=== PATIENT | male | born 1970 | race Caucasian/White ===

== ENCOUNTER 2017-09-21 14:10 | Inpatient (IN) | payer OTHER ==
[~2017-09-21] VITALS: Ht 180.3 cm; Wt 93.5 kg
--- NOTE | ~2017-09-21 | EKG ---
[place] [address] 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[facility] : 1970 Requested By: Shay Genao Order Number: [id number] MD: Billy Barba Measurements Intervals [place] Rate: 106 P: 40 AR: 146 QRS: -34 QRSD: 114 T: 188 QT: 350 QTc: 465 Interpretive Statements Sinus tachycardia Atrial premature complex Borderline IVCD with LAD Nonspecific ST and T wave abnormality No previous ECG available for comparison Electronically Signed On 09-23-2017 8:34:19 CDT by Billy Barba [email or web address] <ELECTRONICALLY SIGNED> By: Billy Barba MD, [facility] 09/23/17 0834 D: 07/1417 141 Billy Barba MD, FACC /EPI
--- NOTE | ~2017-09-21 | H ---
[facility] [place] [address] HISTORY AND PHYSICAL Name: MARYANNE CLEVELAND Room #: 213-P [facility] IN M.R.#: [id number] Admission: 09/21/17 Attend Phys: Andre Brady MD, Discharge: 09/26/17 Date of : 72 Report #: [id number] THIS REPORT FOR: //name// CC: ELIAZAR Brady Physician staff DATE OF SERVICE: 09/21/2017 HISTORY OF PRESENT ILLNESS: The patient is a 47-year-old male who presented to my office for an echo Doppler. Was seen by primary care physician, PEGGY Mane with a 2-week history of markedly increased weight, shortness of breath, dyspnea, orthopnea and unable to lie flat. He does not have prior cardiac history. The echo Doppler in our office revealed an ejection fraction of 15-20% with a PA pressure of 60-70. Moderate MR, TR. The patient denies being sick in the last few months. He denies any significant chest pain or anginal complaints. No significant family history of premature coronary artery disease. He takes no medications. In the past, he has been moderate alcohol, tobacco and some illicit drug use, but nothing recently. He talks about a 20-25 pound weight gain over the last couple of weeks. He is accompanied by his significant other. History of binge drinking and cocaine, but he states nothing recently. PAST MEDICAL HISTORY: Essentially negative except for tonsillectomy. FAMILY HISTORY: Negative for premature coronary artery disease. MEDICATIONS: Ativan p.r.n. for anxiety. ALLERGIES: No known drug allergies. SOCIAL HISTORY: He is not . History of binge drinking and cocaine, but nothing real recently. He works 3 jobs. He has a significant other. REVIEW OF SYSTEMS: Negative except for stated above with a markedly increased weight gain, shortness of breath. LABORATORY DATA: Sodium 141, potassium 3.4, creatinine 1.4. Troponin 0.4. ProBNP 6050. H and H 14 and 44, platelets 318. Chest x-ray shows cardiomegaly and some mild cephalization. PHYSICAL EXAMINATION: GENERAL: He is mildly dyspneic at rest. VITAL SIGNS: Blood pressure in the office was 160s-170s/110. Currently, blood pressure is improved 140/100, pulse has been anywhere initially at 100 an hour [facility] [address] [place] [address] HISTORY AND PHYSICAL Name: MARYANNE CLEVELAND Room #: 213-P [facility] IN M.R.#: [id number] Admission: 09/21/17 Attend Phys: Andre Brady MD, Discharge: 09/26/17 Date of : 72 Report #: [id number] and 70s. HEENT: Eyes reveal xanthelasmas. Pharynx is clear. NECK: Shows preserved upstrokes without JVD. There is JVD noted about fdc up to the angle of the jaw with some jugular venous pulsations. LUNGS: Markedly diminished in the bases with few crackles. CARDIOVASCULAR: S1, S2 distant. There was a soft S3 gallop this afternoon on his admission. ABDOMEN: Slightly protuberant. Positive for hepatojugular reflux. EXTREMITIES: Reveal 3+ edema to the knee. Distal pulses diminished. NEUROLOGIC: Intact. MUSCULOSKELETAL: No gross joint deformity. SKIN: Warm and dry with some evidence of some early venous stasis. ASSESSMENT: 1. Acute systolic heart failure, ejection fraction 15-20%. 2. Severe apparent dilated, I suspect nonischemic cardiomyopathy (do need to rule out ischemic cause). 3. Hypertension, possibly uncontrolled. 4. History of drug and alcohol use, but currently none. 5. Pulmonary hypertension. RECOMMENDATIONS AND PLAN: Blood pressure control, heart rate, initiate afterload reducers, diuretics, blood pressure. Echo Doppler from the office report is here, significant pulmonary hypertension secondary to volume overload. PA pressure was 60-70 mmHg. Fluid and sodium restriction. We will initiate Aldactone, ARB, beta blockers, daily weights and eventually will need right and left heart catheterization. Thank you for asking me to assist in the care of this patient. <ELECTRONICALLY SIGNED> By: Andre Brady MD, FACC 09/27/17 0923 25 01 Andre Brady MD, FACC /nt
--- NOTE | ~2017-09-21 | CATHLAB ---
[facility] [address] [place] [address] INVASIVE PROCEDURE REPORT Name: MARYANNE CLEVELAND Room #: 213-P [facility] IN M.R.#: [id number] Admission: 09/21/17 Attend Phys: Andre Brady, Discharge: 09/26/17 Date of : 72 Date of Service: 09/26/17 1213 Report #: [id number] THIS REPORT FOR: //name// APPROVED REPORT Study performed: 09/23/2017 12:12:27 Patient Details Patient Status: In-Patient Room #: The patient is a 47 year-old male Event Personnel Andre Brady Helmet Hat Brim Cutter, Belinda Alexander RTR, DISTRICT DIRECTOR Monitor, Orlando Naylor RN, Amilcar Borden RN RN, Pascual Cleveland Scrbrown Procedures Performed Art Access - R femoral artery* , Carson Access - R femoral vein 42237 Initial Mod Sed Same Phys/QHP Gr5y 241482 Right and Left Heart Cath w/or w/o Coronarie [id number] RLHC Hemostasis w/ Mynx Hemostasis with Manual pressure 48192 Mod Sed Same Phys/QHP Ea 901225 Renal Bilateral Peripheral Angiography [id number] CVRENALBIL Indication Cardiomyopathy Procedure Narrative The Right Groin^ was infiltrated with 1% Lidocaine subcutaneous anesthesia. A Right Heart Catheterization was performed with a 7 Fr. Casselton-Brynn catheter and pressure were recorded. Cardiac outputs were obtained by the Thermal Dilution method. A PINNACLE 6FR Sheath #[id number] sheath was inserted into the RFA^. Coronary angiography was performed using coronary diagnostic catheters. The right coronary system was accessed and visualized with a JR4 catheter. The left coronary system was accessed and visualized with a JL4 catheter. The left ventricle was accessed and visualized with a Pigtail catheter. Left ventriculogram was performed in 30 degree projection. Pre-demployment femoral angiogram was performed . Closure device was deployed with a 6 Fr MYNXGRIP 6/7F #[id number]. Hemostasis was obtained with manual pressure following sheath removal without any complications. The patient tolerated the procedure well and there were no complications associated with the procedure. There was no hematoma. [facility] [address] [place] [address] INVASIVE PROCEDURE REPORT Name: CRISTOFERMARYANNE Room #: 213-P [facility] IN M.R.#: [id number] Admission: 09/21/17 Attend Phys: Andre Brady, Discharge: 09/26/17 Date of : 72 Date of Service: 09/26/17 1213 Report #: [id number] Intraoperative Conscious Sedation Sedation start time: 12:38 Case end Time: 13:16 Fentanyl 50 mcg Versed 1.5 mg Fluoro Time: 5.33 minutes Dose: DAP 6265.50 cGycm2 586 mGy Contrast Type and Amount: Visipaque 105 ml Hemodynamics The right atrial mean pressure is 26 mmHg. The right ventricular pressure is 67/17 mmHg. The pulmonary artery pressure is 83/46 mmHg with a mean of 60 mmHg. The mean pulmonary capillary wedge pressure is 34 mmHg. The aortic pressure is 172/119 mmHg with a mean of 138 mmHg. The left ventricular pressure is 183/26 mmHg with a mean of mmHg. The left ventricular end diastolic pressure is 51 mmHg. The cardiac output using thermo method is 3.55 L/min. The cardiac index using thermo method is 1.57 L/min/m2. Conclusion #1 successful right left heart catheterization see hemodynamics above. Marketed elevations in pulmonary artery pressure pulmonary wedge pressure. #2 mildly dilated left ventricle with severe global hypokinesis EF 15-20% range #3 normal coronary anatomy no occlusive disease left dominant system #4 selective bilateral renal artery angiogram reveals a 30% ostial right renal artery otherwise well-preserved Recommendations and plan:. Patient is currently admitted to the CCU. Have rebolus with 80 mg of Lasix and initiated a drip. Have significant diuresis left to go here. Will need aggressive fluid and sodium restriction hypertensive control and appropriate medications. <ELECTRONICALLY SIGNED> By: Andre Brady MD, FACC 09/26/17 121 12 12 Andre Brady MD, FACC /INF
[2017-09-21 14:14] VITALS: BP 197/142
[2017-09-21 14:46] LABS: ABSOLUTE NEUTROPHILS 7.2 thou/uL (1.4-8.2); BASOPHILS 1.1 % (0.0-2.0); EOSINOPHILS 1.5 % (0.0-3.0); HEMATOCRIT 44.3 % (42.0-52.0); HEMOGLOBIN 14.2 gm/dL (14.0-18.0); LYMPHOCYTES 20.6 % (24.0-44.0); MCH 25.5 pg (26.0-34.0); MCHC 32.1 g/dL (28.0-37.0); MCV 79.4 fL (80.0-100.0); MONOCYTES 10.1 % (1.0-8.0); PLATELET COUNT 318 thou/uL (150-400); POLYS 66.7 % (36.0-66.0); RBC 5.58 mil/uL (4.50-6.00); RDW 14.5 % (10.5-14.5); WBC 10.8 thou/uL (4.0-11.0)
[2017-09-21 15:00] LABS: CALCIUM 8.6 mg/dL (8.5-10.1); CREATININE 1.4 mg/dL (0.7-1.3)
[2017-09-21] MEDS ORDERED: ATIVAN0.5 MG PO (15:02)
[2017-09-21 15:08] LABS: TROPONIN-I 0.4 ng/mL (<0.06)
[2017-09-21 15:14] LABS: POTASSIUM 2.9 mmol/L (3.5-5.1)
[2017-09-21 15:26] VITALS: BP 167/143
[2017-09-21 15:59] VITALS: BP 171/133
[2017-09-21 17:11] VITALS: BP 157/120
[2017-09-21 19:58] VITALS: BP 139/109
[2017-09-22 00:43] VITALS: BP 135/84
[2017-09-22 05:02] LABS: CALCIUM 8.2 mg/dL (8.5-10.1); CREATININE 1.5 mg/dL (0.7-1.3); POTASSIUM 3.6 mmol/L (3.5-5.1)
[2017-09-22 05:05] VITALS: BP 150/115
[2017-09-22 08:18] VITALS: BP 156/115
[2017-09-22 11:14] VITALS: BP 137/88
[2017-09-22 15:59] VITALS: BP 138/103
[2017-09-22 20:04] VITALS: BP 148/115
[2017-09-23 03:54] LABS: ALBUMIN 2.5 g/dL (3.4-5.0); CALCIUM 8.4 mg/dL (8.5-10.1); CREATININE 1.5 mg/dL (0.7-1.3); TOTAL PROTEIN 5.6 g/dL (6.4-8.2)
[2017-09-23 06:17] VITALS: BP 146/99
[2017-09-23] MEDS ORDERED: COZAAR 25 MG TA25 M1 PO (09:07)
[2017-09-23] MEDS ORDERED: SPIRONOLACTONE25 M1 PO (09:07)
[2017-09-23] MEDS ORDERED: AMLODIPINE BESYL5 M1 PO (09:07)
[2017-09-23] MEDS ORDERED: COREG25 MG PO (09:07)
[2017-09-23] MEDS ORDERED: DEMADEX20 MG PO (09:07)
[2017-09-23 11:34] VITALS: BP 144/117
[2017-09-23 11:36] VITALS: BP 150/104
[2017-09-23 15:00] VITALS: BP 138/77
[2017-09-23 19:45] VITALS: BP 128/80
[2017-09-24 00:45] VITALS: BP 120/75
[2017-09-24 04:30] VITALS: BP 135/85
[2017-09-24 05:07] LABS: HEMOGLOBIN 14.6 gm/dL (14.0-18.0); MCH 25.6 pg (26.0-34.0); MCHC 32.5 g/dL (28.0-37.0); MCV 78.9 fL (80.0-100.0); RBC 5.71 mil/uL (4.50-6.00); RDW 14.5 % (10.5-14.5); WBC 10.2 thou/uL (4.0-11.0)
[2017-09-24 05:33] LABS: ALBUMIN 2.8 g/dL (3.4-5.0); CALCIUM 8.7 mg/dL (8.5-10.1); CREATININE 1.4 mg/dL (0.7-1.3); TOTAL BILIRUBIN 1.4 mg/dL (<0.1-1.0); TOTAL PROTEIN 6.4 g/dL (6.4-8.2)
[2017-09-24 07:10] VITALS: BP 139/86
[2017-09-24 08:34] LABS: MAGNESIUM 1.6 mg/dL (1.8-2.4); POTASSIUM 3.3 mmol/L (3.5-5.1)
[2017-09-24 11:30] VITALS: BP 107/83
[2017-09-24 15:40] VITALS: BP 94/60
[2017-09-24 19:16] VITALS: BP 112/80
[2017-09-25 04:13] VITALS: BP 119/64
[2017-09-25 04:30] LABS: ALBUMIN 2.7 g/dL (3.4-5.0); CALCIUM 8.8 mg/dL (8.5-10.1); CREATININE 1.4 mg/dL (0.7-1.3); POTASSIUM 3.1 mmol/L (3.5-5.1); TOTAL BILIRUBIN 1.2 mg/dL (<0.1-1.0); TOTAL PROTEIN 6.2 g/dL (6.4-8.2)
[2017-09-25 07:08] VITALS: BP 116/82
[2017-09-25 11:49] VITALS: BP 108/79
[2017-09-25 15:01] VITALS: BP 83/57
[2017-09-25 19:53] VITALS: BP 100/74
[2017-09-26 04:42] VITALS: BP 124/87
[2017-09-26 05:50] LABS: ALBUMIN 2.8 g/dL (3.4-5.0); CALCIUM 8.6 mg/dL (8.5-10.1); CREATININE 1.4 mg/dL (0.7-1.3); POTASSIUM 3.8 mmol/L (3.5-5.1); TOTAL PROTEIN 6.1 g/dL (6.4-8.2)
[2017-09-26 07:30] VITALS: BP 126/90
[2017-09-26] MEDS ORDERED: IRBESARTAN300 MG PO (08:16)
[2017-09-26] MEDS ORDERED: CARVEDILOL12.5 MG PO (08:16)
[2017-09-26 09:37] VITALS: BP 126/90
== END 2017-09-26 10:40 | disposition home or self-care (01) | DRG 286 ==
LOC: ER 14:10 → 2N 15:04 → EROBS 15:04 → 2N 16:01
PROVIDERS: Emergency Medicine; Internal Medicine Cardiovascular Disease; Nurse Practitioner Adult Health
PROC: B4181ZZ Fluoroscopy of Bilateral Renal Arteries using Low Osmolar Contrast (ICD-10-PCS; principal; 2017-09-26)
PROC: B2111ZZ Fluoroscopy of Multiple Coronary Arteries using Low Osmolar Contrast (ICD-10-PCS; principal; 2017-09-26)
PROC: B2151ZZ Fluoroscopy of Left Heart using Low Osmolar Contrast (ICD-10-PCS; principal; 2017-09-26)
PROC: 4A023N8 Measurement of Cardiac Sampling and Pressure, Bilateral, Percutaneous Approach (ICD-10-PCS; principal; 2017-09-26)
DX: I13.0 Hypertensive heart and chronic kidney disease with heart failure and stage 1 through stage 4 chronic kidney disease, or unspecified chronic kidney disease (principal); I50.21 Acute systolic (congestive) heart failure; N17.9 Acute kidney failure, unspecified; N18.9 Chronic kidney disease, unspecified; I42.0 Dilated cardiomyopathy; I27.20 Pulmonary hypertension, unspecified; E87.6 Hypokalemia; E83.42 Hypomagnesemia; F14.10 Cocaine abuse, uncomplicated; F17.210 Nicotine dependence, cigarettes, uncomplicated; Z79.82 Long term (current) use of aspirin; Z79.899 Other long term (current) drug therapy
CPT/HCPCS: 10194